=== PATIENT | male | born 1950 | race Caucasian/White ===

== ENCOUNTER → 2018-02-03 | Outpatient (CLI) | payer MEDICARE, OTHER ==
[~2018-02-03] MED LIST: ASPIRIN 81M81 MG/TA2 PO; CALCIUM 600MG+D1 TAB PO; CELEBREX 200MG200 MG PO; CEPHALEXIN500 M1 PO; FLONASEALLERGY NAS; LIORESAL 1010 MG/TAB PO; LIPITOR 10MG10 MG PO; LOPRESSOR 225 MG/TAB PO; MAGNESIUM500 MG PO; MIRALAX PA17 GM/Dose PO; MULTI VITAMINS1 TAB PO; NATURAL POTASS595 MG PO; NORCO 325 MG-7.1 TAB PO; OMEGA-31 SGL PO; PROFERRIN ES12 MG PO; QUESTRAN4 GM/9 GM PO; THE MEDICINE S200 M2 PO; ZYRTEC10MGSGL PO
== END ==
LOC: COL.RAD 14:17
DX: R91.8 Other nonspecific abnormal finding of lung field (principal); K76.89 Other specified diseases of liver; K86.89 Other specified diseases of pancreas; D64.9 Anemia, unspecified; D72.829 Elevated white blood cell count, unspecified
CPT/HCPCS: Q9967

== ENCOUNTER → 2018-02-08 | Outpatient (CLI) | payer MEDICARE, OTHER ==
[2018-02-08] VITALS (12 sets, daily range): BP systolic 105–143; BP diastolic 51–76; PULSE 53–76
[~2018-02-08] VITALS: Ht 190.5 cm; Wt 99.9 kg
[~2018-02-08] MED LIST changes: +FOLIC ACID0.4 MG PO; +MASON NATURAL2000 IU PO; +VITAMIN C500 MG PO
[2018-02-08 07:31] LABS: INR 1.2 (0.8-3.0); PROTHROMBIN TIME 14.4 SECONDS (9.7-12.8)
== END ==
LOC: COL.RAD 06:59
PROVIDERS: Radiology Diagnostic Radiology
DX: K76.89 Other specified diseases of liver (principal)

== ENCOUNTER 2018-02-14 10:56 | Inpatient (IN) | payer MEDICARE, OTHER ==
[~2018-02-14] VITALS: Ht 190.5 cm; Wt 100.2 kg
[2018-02-14 11:29] LABS: BASO # 0.1 (0.0-0.2); BASO % 0.4 % (0.0-2.0); EOS # 0.3 (0.0-0.7); EOS % 1.4 % (0-4.0); GRAN # 17.9 (1.4-6.5); GRAN % 88.5 % (42.2-75.2); LYMPH # 0.9 (1.2-3.4); LYMPH % 4.2 % (20.0-51.0); MEAN CELL VOLUME 86 fl (80.0-100.0); MEAN CORPUSCULAR HGB CONC 32 g/dl (33.0-37.0); MEAN PLATELET VOLUME 12.3 fl (7.4-10.4); MONO % 4.9 % (1.7-9.3); PLATELET COUNT 205 K/mm3 (130-400); RED BLOOD COUNT 3.36 M/mm3 (4.20-5.60); REDCELL DISTRIBUTION WIDTH-CV 14.8 % (11.5-14.5)
[2018-02-14 11:30] LABS: HEMATOCRIT 28.9 % (42.0-52.0); HEMOGLOBIN 9.2 g/dl (13.5-18.0); MEAN CORPUSCULAR HEMOGLOBIN 27 pg (27.0-31.0)
[2018-02-14] MEDS ORDERED: ASPIRIN 81M81 MG/TA2 PO (11:33)
[2018-02-14 11:43] LABS: PHOSPHOROUS 3.2 mg/dL (2.5-4.5)
[2018-02-14 11:44] LABS: ALANINE AMINOTRANSFERASE 36 U/L (21-72); ALBUMIN 3.2 gm/dL (3.5-5.0); ALKALINE PHOSPHATASE 250 U/L (50-136); ANION GAP 10 mmol/L (7-16); AST,SGOT 34 U/L (15-37); BILIRUBIN,TOTAL 0.4 mg/dL (0.0-1.0); BLOOD UREA NITROGEN 37 mg/dL (9-20); C-REACTIVE PROTEIN 5.6 mg/dL (0.0-0.9); CARBON DIOXIDE 29 mmol/L (22-30); CHLORIDE 100 mmol/L (98-107); GLUCOSE 117 mg/dL (74-106); LIPASE 29 U/L (23-300); POTASSIUM 3.7 mmol/L (3.4-5.0); SODIUM 138 mmol/L (137-145); TOTAL PROTEIN 6.3 gm/dL (6.4-8.2)
[2018-02-14 11:47] LABS: ALCOHOL(ethanol),MEDICAL < 10 mg/dL
[2018-02-14 11:51] LABS: CALCIUM 14.9 mg/dL (8.4-10.2)
[2018-02-14 11:53] LABS: TROPONIN-I < 0.012 ng/mL (0.000-0.034)
[2018-02-14 12:40] LABS: COLLECTION METHOD CLEAN CATCH
[2018-02-14 12:51] LABS: MUCOUS Present /lpf; PH 5 (5-8); SQUAMOUS EPITHELIAL None Seen /hpf; URINE APPEARANCE Hazy; URINE BACTERIA None Seen /hpf; URINE BILIRUBIN Negative (NEGATIVE); URINE BLOOD Negative (NEGATIVE); URINE CALCIUM OXALATE CRYSTAL Present /hpf; URINE COLOR Yellow; URINE GLUCOSE Negative (NEGATIVE); URINE KETONE Negative (NEGATIVE); URINE LEUKOCYTE ESTERASE Negative (NEGATIVE); URINE NITRATE Negative (NEGATIVE); URINE PROTEIN(semi-quant) Negative (NEGATIVE); URINE UROBILINOGEN Negative (NEGATIVE)
[2018-02-14 15:27] VITALS: BP 110/42; PULSE 45; TEMP 98.4
[2018-02-14 20:07] VITALS: BP 126/56; PULSE 101; TEMP 98.6
[2018-02-15 00:04] VITALS: BP 126/45; PULSE 62; TEMP 98.6
[2018-02-15 04:06] VITALS: BP 110/41; PULSE 101; TEMP 98.4
[2018-02-15 07:23] LABS: BASO # 0.1 (0.0-0.2); BASO % 0.3 % (0.0-2.0); EOS # 0.3 (0.0-0.7); EOS % 1.6 % (0-4.0); GRAN # 12.9 (1.4-6.5); GRAN % 84.8 % (42.2-75.2); LYMPH # 1.1 (1.2-3.4); LYMPH % 7.4 % (20.0-51.0); MEAN CELL VOLUME 85 fl (80.0-100.0); MEAN CORPUSCULAR HGB CONC 31 g/dl (33.0-37.0); MEAN PLATELET VOLUME 12.7 fl (7.4-10.4); MONO # 0.8 (0.1-0.6); MONO % 5.2 % (1.7-9.3); PLATELET COUNT 173 K/mm3 (130-400); REDCELL DISTRIBUTION WIDTH-CV 15.1 % (11.5-14.5)
[2018-02-15 07:24] LABS: HEMATOCRIT 26.3 % (42.0-52.0); HEMOGLOBIN 8.1 g/dl (13.5-18.0); MEAN CORPUSCULAR HEMOGLOBIN 26 pg (27.0-31.0)
[2018-02-15 07:45] LABS: CREATININE, serum 1.52 mg/dL (0.66-1.25); POTASSIUM 3.7 mmol/L (3.4-5.0)
[2018-02-15 07:47] LABS: CALCIUM 13.3 mg/dL (8.4-10.2)
[2018-02-15 07:59] VITALS: BP 115/52; PULSE 105; TEMP 98.5
[2018-02-15 12:00] VITALS: BP 114/66; PULSE 62; TEMP 98.6
[2018-02-15 16:01] VITALS: BP 125/51; PULSE 66; TEMP 98.6
[2018-02-15 19:33] VITALS: BP 148/55; PULSE 106; TEMP 98.8
[2018-02-16] VITALS (7 sets, daily range): BP systolic 120–159; BP diastolic 47–75; PULSE 64–112; TEMP 98–100.7
[2018-02-16 07:01] LABS: BASO # 0.1 (0.0-0.2); BASO % 0.4 % (0.0-2.0); EOS # 0.3 (0.0-0.7); GRAN % 86.6 % (42.2-75.2); LYMPH # 0.8 (1.2-3.4); LYMPH % 5.7 % (20.0-51.0); MEAN CELL VOLUME 86 fl (80.0-100.0); MEAN CORPUSCULAR HGB CONC 30 g/dl (33.0-37.0); MEAN PLATELET VOLUME 12.9 fl (7.4-10.4); MONO # 0.7 (0.1-0.6); MONO % 4.7 % (1.7-9.3); PLATELET COUNT 172 K/mm3 (130-400); RED BLOOD COUNT 2.95 M/mm3 (4.20-5.60); REDCELL DISTRIBUTION WIDTH-CV 14.9 % (11.5-14.5)
[2018-02-16 07:08] LABS: HEMATOCRIT 25.3 % (42.0-52.0); HEMOGLOBIN 7.7 g/dl (13.5-18.0); MEAN CORPUSCULAR HEMOGLOBIN 26 pg (27.0-31.0)
[2018-02-16 07:11] LABS: ALBUMIN 2.5 gm/dL (3.5-5.0); BILIRUBIN,TOTAL 0.2 mg/dL (0.0-1.0); CREATININE, serum 1.32 mg/dL (0.66-1.25); POTASSIUM 3.5 mmol/L (3.4-5.0); TOTAL PROTEIN 5.2 gm/dL (6.4-8.2)
[2018-02-16 07:37] LABS: CALCIUM 12.9 mg/dL (8.4-10.2)
[2018-02-17] VITALS (14 sets, daily range): BP systolic 107–137; BP diastolic 45–59; PULSE 40–107; TEMP 98.2–99
[2018-02-17 06:57] LABS: BASO # 0.1 (0.0-0.2); BASO % 0.4 % (0.0-2.0); EOS # 0.3 (0.0-0.7); EOS % 2.2 % (0-4.0); GRAN % 84.4 % (42.2-75.2); LYMPH # 0.8 (1.2-3.4); LYMPH % 6.6 % (20.0-51.0); MEAN CELL VOLUME 83 fl (80.0-100.0); MEAN CORPUSCULAR HGB CONC 32 g/dl (33.0-37.0); MEAN PLATELET VOLUME 13.1 fl (7.4-10.4); MONO # 0.7 (0.1-0.6); MONO % 6.1 % (1.7-9.3); PLATELET COUNT 149 K/mm3 (130-400); RED BLOOD COUNT 2.82 M/mm3 (4.20-5.60); REDCELL DISTRIBUTION WIDTH-CV 15.2 % (11.5-14.5)
[2018-02-17 07:02] LABS: ALBUMIN 2.4 gm/dL (3.5-5.0); BILIRUBIN,TOTAL 0.2 mg/dL (0.0-1.0); CALCIUM 11.1 mg/dL (8.4-10.2); CREATININE, serum 1.26 mg/dL (0.66-1.25); POTASSIUM 3.1 mmol/L (3.4-5.0); TOTAL PROTEIN 4.8 gm/dL (6.4-8.2)
[2018-02-17 07:25] LABS: HEMATOCRIT 23.5 % (42.0-52.0); HEMOGLOBIN 7.4 g/dl (13.5-18.0); MEAN CORPUSCULAR HEMOGLOBIN 26 pg (27.0-31.0)
[2018-02-18 03:56] VITALS: BP 129/53; PULSE 64; TEMP 99.7
[2018-02-18 07:40] VITALS: BP 130/65; PULSE 75; TEMP 99.4
[2018-02-18 07:49] LABS: BASO # 0.1 (0.0-0.2); BASO % 0.4 % (0.0-2.0); EOS # 0.3 (0.0-0.7); EOS % 2.4 % (0-4.0); GRAN # 11.2 (1.4-6.5); GRAN % 84.2 % (42.2-75.2); LYMPH % 7.3 % (20.0-51.0); MEAN CELL VOLUME 86 fl (80.0-100.0); MEAN CORPUSCULAR HGB CONC 31 g/dl (33.0-37.0); MEAN PLATELET VOLUME 13.4 fl (7.4-10.4); MONO # 0.7 (0.1-0.6); MONO % 5.4 % (1.7-9.3); PLATELET COUNT 158 K/mm3 (130-400); RED BLOOD COUNT 2.82 M/mm3 (4.20-5.60); REDCELL DISTRIBUTION WIDTH-CV 15.1 % (11.5-14.5)
[2018-02-18 07:56] LABS: ALANINE AMINOTRANSFERASE 37 U/L (21-72); ALBUMIN 2.3 gm/dL (3.5-5.0); ALKALINE PHOSPHATASE 201 U/L (50-136); ANION GAP 10 mmol/L (7-16); AST,SGOT 35 U/L (15-37); BILIRUBIN,TOTAL < 0.1 mg/dL (0.0-1.0); BLOOD UREA NITROGEN 23 mg/dL (9-20); CALCIUM 10.4 mg/dL (8.4-10.2); CARBON DIOXIDE 24 mmol/L (22-30); CHLORIDE 107 mmol/L (98-107); CREATININE, serum 1.19 mg/dL (0.66-1.25); GLUCOSE 83 mg/dL (74-106); MAGNESIUM 1.6 mg/dL (1.6-2.3); POTASSIUM 3.3 mmol/L (3.4-5.0); SODIUM 141 mmol/L (137-145); TOTAL PROTEIN 4.7 gm/dL (6.4-8.2)
[2018-02-18 08:13] LABS: HEMATOCRIT 24.2 % (42.0-52.0); HEMOGLOBIN 7.4 g/dl (13.5-18.0); MEAN CORPUSCULAR HEMOGLOBIN 26 pg (27.0-31.0)
[2018-02-18 12:50] VITALS: BP 127/61; PULSE 70; TEMP 98.9
[2018-02-18 15:42] VITALS: BP 121/60; PULSE 114; TEMP 98.5
[2018-02-18 20:15] VITALS: BP 145/64; PULSE 72; TEMP 99
[2018-02-18 23:21] VITALS: BP 121/51; PULSE 118; TEMP 98.5
[2018-02-19 04:12] VITALS: BP 112/60; PULSE 47; TEMP 99.5
[2018-02-19 06:59] LABS: BASO % 0.3 % (0.0-2.0); EOS # 0.3 (0.0-0.7); EOS % 2.5 % (0-4.0); GRAN % 82.7 % (42.2-75.2); LYMPH # 1.1 (1.2-3.4); LYMPH % 8.5 % (20.0-51.0); MEAN CELL VOLUME 85 fl (80.0-100.0); MEAN CORPUSCULAR HGB CONC 31 g/dl (33.0-37.0); MEAN PLATELET VOLUME 13.5 fl (7.4-10.4); MONO # 0.7 (0.1-0.6); MONO % 5.5 % (1.7-9.3); PLATELET COUNT 159 K/mm3 (130-400); RED BLOOD COUNT 2.67 M/mm3 (4.20-5.60); REDCELL DISTRIBUTION WIDTH-CV 15.2 % (11.5-14.5)
[2018-02-19 07:04] LABS: HEMATOCRIT 22.6 % (42.0-52.0); HEMOGLOBIN 7.1 g/dl (13.5-18.0); MEAN CORPUSCULAR HEMOGLOBIN 27 pg (27.0-31.0)
[2018-02-19 07:09] LABS: ALBUMIN 2.3 gm/dL (3.5-5.0); BILIRUBIN,TOTAL 0.2 mg/dL (0.0-1.0); CALCIUM 10.2 mg/dL (8.4-10.2); CREATININE, serum 1.06 mg/dL (0.66-1.25); POTASSIUM 3.3 mmol/L (3.4-5.0); TOTAL PROTEIN 4.7 gm/dL (6.4-8.2)
[2018-02-19 07:21] VITALS: BP 117/54; PULSE 72; TEMP 98.6
== END 2018-02-19 10:41 | disposition home or self-care (01) | DRG 640 ==
LOC: COL.ER 10:56 → MEDICAL 13:27
PROVIDERS: Emergency Medicine; Internal Medicine; Physician Assistant; Surgery
PROC: 02HV33Z Insertion of Infusion Device into Superior Vena Cava, Percutaneous Approach (ICD-10-PCS; 2018-02-17)
PROC: 0JH60XZ Insertion of Tunneled Vascular Access Device into Chest Subcutaneous Tissue and Fascia, Open Approach (ICD-10-PCS; principal; 2018-02-17 10:30)
DX: E83.52 Hypercalcemia (principal); G92 Toxic encephalopathy; C25.9 Malignant neoplasm of pancreas, unspecified; C78.7 Secondary malignant neoplasm of liver and intrahepatic bile duct; C78.01 Secondary malignant neoplasm of right lung; C78.02 Secondary malignant neoplasm of left lung; N17.9 Acute kidney failure, unspecified; Z66 Do not resuscitate; Z95.0 Presence of cardiac pacemaker; I10 Essential (primary) hypertension; D64.9 Anemia, unspecified; I48.91 Unspecified atrial fibrillation; E86.0 Dehydration; E87.6 Hypokalemia
CPT/HCPCS: 99223-AI; 99232-AI; 99233-AI; 99239; C1788; J0171; J0690; J1644; J1940; J2250; J2430; J2704; J7030; J7040

== ENCOUNTER 2018-02-22 14:17 | Outpatient (RCR) | payer MEDICARE, OTHER ==
[2018-02-22] VITALS (9 sets, daily range): BP systolic 97–165; BP diastolic 51–88; PULSE 54–68; TEMP 97–98.8
[~2018-02-22] VITALS: Ht 190.5 cm; Wt 100.0 kg
== END 2018-02-22 22:00 | disposition home or self-care (01) ==
LOC: EUO 14:17
DX: C25.2 Malignant neoplasm of tail of pancreas (principal)
CPT/HCPCS: J1200; J7050; P9016

== ENCOUNTER 2018-03-08 11:30 | Outpatient (RCR) | payer MEDICARE, OTHER ==
[~2018-03-08] VITALS: Ht 190.5 cm; Wt 104.5 kg
[2018-03-08] VITALS (9 sets, daily range): BP systolic 109–134; BP diastolic 63–79; PULSE 55–60; TEMP 97.4–98.6
== END 2018-03-08 17:44 | disposition home or self-care (01) ==
LOC: EUO 11:30
DX: C25.2 Malignant neoplasm of tail of pancreas (principal)
CPT/HCPCS: J7050; P9016

== ENCOUNTER → 2018-03-16 | Outpatient (CLI) | payer MEDICARE, OTHER | LOC: COL.VAS 10:22 | DX: I82.611 Acute embolism and thrombosis of superficial veins of right upper extremity (principal) ==

== ENCOUNTER 2018-07-06 08:00 | Outpatient (RCR) | payer MEDICARE, OTHER ==
[2018-07-06] VITALS (10 sets, daily range): BP systolic 115–140; BP diastolic 50–63; PULSE 46–103; TEMP 97.4–98.1
[~2018-07-06] VITALS: Ht 190.5 cm; Wt 96.8 kg
[2018-07-06] MEDS ORDERED: ASPIRIN 81M81 MG/TA2 PO (09:50)
== END 2018-07-06 14:40 | disposition home or self-care (01) ==
LOC: EUO 08:00
DX: C25.2 Malignant neoplasm of tail of pancreas (principal); D64.9 Anemia, unspecified
CPT/HCPCS: J7050; P9016

== ENCOUNTER 2018-09-06 14:32 | Outpatient (RCR) | payer MEDICARE, OTHER ==
[~2018-09-06] VITALS: Ht 190.5 cm; Wt 102.2 kg
[2018-09-06 15:42] VITALS: BP 125/63; PULSE 62; TEMP 99.1
[2018-09-06 16:02] VITALS: BP 132/72; PULSE 56; TEMP 99.2
[2018-09-06 16:22] VITALS: BP 126/69; PULSE 58; TEMP 98.8
[2018-09-06 16:37] VITALS: BP 143/75; PULSE 49; TEMP 98.8
[2018-09-06 17:08] VITALS: BP 130/68; PULSE 59; TEMP 99
== END 2018-09-06 17:16 | disposition home or self-care (01) ==
LOC: EUO 14:32
DX: C25.9 Malignant neoplasm of pancreas, unspecified (principal); Z45.2 Encounter for adjustment and management of vascular access device; Z95.828 Presence of other vascular implants and grafts
CPT/HCPCS: J1644; J7050; P9035

== ENCOUNTER 2018-09-26 08:00 | Outpatient (RCR) | payer MEDICARE, OTHER ==
[2018-09-26] VITALS (9 sets, daily range): BP systolic 134–154; BP diastolic 65–84; PULSE 53–71; TEMP 98–98.7
[~2018-09-26] VITALS: Ht 190.5 cm; Wt 99.0 kg
[2018-09-27] MEDS ORDERED: PRILOSEC 20MG20 MG PO (19:24)
[2018-09-27] MEDS ORDERED: LIPITOR20 MG (19:24)
[2018-09-27] MEDS ORDERED: LIPITOR 10MG10 MG PO (19:25)
== END 2018-09-26 13:55 | disposition home or self-care (01) ==
LOC: EUO 08:00
DX: C25.2 Malignant neoplasm of tail of pancreas (principal); D64.9 Anemia, unspecified; D50.9 Iron deficiency anemia, unspecified; C78.01 Secondary malignant neoplasm of right lung; C78.02 Secondary malignant neoplasm of left lung; Z45.2 Encounter for adjustment and management of vascular access device; Z95.828 Presence of other vascular implants and grafts; Z48.00 Encounter for change or removal of nonsurgical wound dressing
CPT/HCPCS: J1644; J7050; P9016

== ENCOUNTER 2018-09-27 18:12 | Observation (INO) | payer MEDICARE, OTHER ==
[~2018-09-27] VITALS: Ht 190.5 cm; Wt 100.4 kg
[2018-09-27 18:51] LABS: BASO % 0.2 % (0.0-2.0); EOS # 0.1 (0.0-0.7); EOS % 0.9 % (0-4.0); GRAN # 13.1 (1.4-6.5); LYMPH # 0.5 (1.2-3.4); LYMPH % 3.4 % (20.0-51.0); MEAN CELL VOLUME 88 fl (80.0-100.0); MEAN CORPUSCULAR HGB CONC 32 g/dl (33.0-37.0); MONO # 0.7 (0.1-0.6); MONO % 4.9 % (1.7-9.3); PLATELET COUNT 80 K/mm3 (130-400); RED BLOOD COUNT 3.45 M/mm3 (4.20-5.60); REDCELL DISTRIBUTION WIDTH-CV 19.4 % (11.5-14.5)
[2018-09-27 18:52] LABS: HEMATOCRIT 30.2 % (42.0-52.0); HEMOGLOBIN 9.5 g/dl (13.5-18.0); MEAN CORPUSCULAR HEMOGLOBIN 28 pg (27.0-31.0)
[2018-09-27 19:01] LABS: ALBUMIN 3.2 gm/dL (3.5-5.0); BILIRUBIN,TOTAL 0.9 mg/dL (0.0-1.0); CALCIUM 11.5 mg/dL (8.4-10.2); CREATININE, serum 0.83 mg/dL (0.66-1.25); POTASSIUM 3.8 mmol/L (3.4-5.0); TOTAL PROTEIN 6.3 gm/dL (6.4-8.2)
[2018-09-27] MEDS ORDERED: LIPITOR20 MG (19:24)
[2018-09-27] MEDS ORDERED: PRILOSEC 20MG20 MG PO (19:24)
[2018-09-27] MEDS ORDERED: LIPITOR 10MG10 MG PO (19:25)
[2018-09-27 21:56] VITALS: BP 105/50; PULSE 107; TEMP 98.7
[2018-09-27 22:05] LABS: COLLECTION METHOD CLEAN CATCH
[2018-09-27 22:28] LABS: BUDDING YEAST Present /hpf; MUCOUS Present /lpf; PH 5 (5-8); SQUAMOUS EPITHELIAL 0-2 /hpf; URINE APPEARANCE Clear; URINE BACTERIA None Seen /hpf; URINE BILIRUBIN Negative (NEGATIVE); URINE BLOOD Negative (NEGATIVE); URINE COLOR Amber; URINE GLUCOSE Negative (NEGATIVE); URINE KETONE Negative (NEGATIVE); URINE LEUKOCYTE ESTERASE Negative (NEGATIVE); URINE NITRATE Negative (NEGATIVE); URINE PROTEIN(semi-quant) Negative (NEGATIVE); URINE RBC 0-2 /hpf; URINE UROBILINOGEN >=4.0 mg/dL (NEGATIVE)
[2018-09-28 01:37] VITALS: BP 108/62; PULSE 95; TEMP 97.4
[2018-09-28 05:08] VITALS: BP 126/55; PULSE 95; TEMP 98.5
[2018-09-28 06:06] LABS: CALCIUM 10.8 mg/dL (8.4-10.2); CREATININE, serum 0.66 mg/dL (0.66-1.25); POTASSIUM 3.7 mmol/L (3.4-5.0)
[2018-09-28 08:43] VITALS: BP 105/46; PULSE 97; TEMP 98.7
[2018-09-28 09:38] LABS: BASO % 0.3 % (0.0-2.0); EOS # 0.7 (0.0-0.7); EOS % 5.5 % (0-4.0); GRAN # 11.2 (1.4-6.5); GRAN % 86.5 % (42.2-75.2); LYMPH # 0.8 (1.2-3.4); LYMPH % 5.8 % (20.0-51.0); MEAN CELL VOLUME 88 fl (80.0-100.0); MEAN CORPUSCULAR HGB CONC 31 g/dl (33.0-37.0); MONO # 0.2 (0.1-0.6); MONO % 1.4 % (1.7-9.3); PLATELET COUNT 60 K/mm3 (130-400); RED BLOOD COUNT 3.27 M/mm3 (4.20-5.60); REDCELL DISTRIBUTION WIDTH-CV 19.4 % (11.5-14.5)
[2018-09-28 09:42] LABS: HEMATOCRIT 28.7 % (42.0-52.0); MEAN CORPUSCULAR HEMOGLOBIN 28 pg (27.0-31.0)
[2018-09-28] MEDS ORDERED: OMNICEF 300MG300 MG PO (10:16)
== END 2018-09-28 12:20 | disposition home or self-care (01) ==
LOC: COL.ER 18:12 → MEDICAL 19:38
PROVIDERS: Emergency Medicine; Internal Medicine; Nurse Practitioner
DX: R50.9 Fever, unspecified (principal); I10 Essential (primary) hypertension; E78.5 Hyperlipidemia, unspecified; I48.91 Unspecified atrial fibrillation; C25.9 Malignant neoplasm of pancreas, unspecified; C78.7 Secondary malignant neoplasm of liver and intrahepatic bile duct; C78.02 Secondary malignant neoplasm of left lung; D64.9 Anemia, unspecified; M19.90 Unspecified osteoarthritis, unspecified site; E83.52 Hypercalcemia; Z95.0 Presence of cardiac pacemaker; Z96.611 Presence of right artificial shoulder joint; Z96.652 Presence of left artificial knee joint; Z96.641 Presence of right artificial hip joint; Z82.49 Family history of ischemic heart disease and other diseases of the circulatory system; Z80.3 Family history of malignant neoplasm of breast
CPT/HCPCS: G0378; J1644; J2543; J3370; J7030; J7050

== ENCOUNTER → 2018-10-10 | Outpatient (CLI) | payer MEDICARE, OTHER ==
[~2018-10-10] MED LIST changes: +LIPITOR20 MG; +OMNICEF 300MG300 MG PO; +PRILOSEC 20MG20 MG PO
== END ==
LOC: COL.VAS 12:19 → COL.RAD 12:19
DX: C25.2 Malignant neoplasm of tail of pancreas (principal); M79.89 Other specified soft tissue disorders; I82.C12 Acute embolism and thrombosis of left internal jugular vein

== ENCOUNTER → 2018-10-19 | Outpatient (CLI) | payer MEDICARE, OTHER ==
[~2018-10-19] MED LIST changes: +LOVENOX 6060 MG/0.6 SQ
[2018-10-19 14:49] VITALS: BP 150/83; PULSE 82
[2018-10-19 15:39] VITALS: BP 153/64; PULSE 75
[2018-10-19 16:06] LABS: PERITONEAL -POLYMORPHONUCLEAR 87.4 % (0-25); PERITONEAL FLUID RBC 2000 /mm3 (0-0)
== END ==
LOC: COL.RAD 14:30
PROVIDERS: Internal Medicine
DX: C25.9 Malignant neoplasm of pancreas, unspecified (principal); R18.8 Other ascites